=== PATIENT | male | born 1970 | race Two or more races ===

== ENCOUNTER 2017-08-30 12:55 | Emergency (ER) | payer OTHER, MEDICAID ==
[~2017-08-30] VITALS: Ht 185.4 cm; Wt 80.7 kg
[~2017-08-30 12:55] MED LIST: AMITR; DIVA250T51; HYDR-4683; TRAZADONE
[2017-08-30] MEDS ORDERED: HYDROcodone-ACET 10/325MG TAB PO ONE (15:15)
[2017-08-30] MEDS ORDERED: KETOROLAC TROMETH 60MG/2ML VIAL IM ONE (15:15)
[2017-08-30 15:35] VITALS: BP 138/96
== END 2017-08-30 16:29 | disposition home or self-care (01) ==
LOC: ER 13:01
DX: S33.5XXA Sprain of ligaments of lumbar spine, initial encounter (principal); Z88.0 Allergy status to penicillin; X50.1XXA Overexertion from prolonged static or awkward postures, initial encounter; Y93.01 Activity, walking, marching and hiking; Y92.89 Other specified places as the place of occurrence of the external cause; Y99.8 Other external cause status
CPT/HCPCS: 72100; 96372; 99284; J1885